=== PATIENT | female | born 1970 | race Hispanic/Latino ===

== ENCOUNTER → 2017-12-06 | Outpatient (CLI) | payer OTHER ==
[~2017-12-06] MED LIST: ADDERALL XR 2020 MG PO; CITALOPRAM HBR20 MG PO; LEVOTHYROXINE75 MCG PO; LEVOTHYROXINE88 MCG PO; OMEGA 3 1,0001 EACH PO; OMEPRAZOLE40 MG PO; OXYBUTYNIN PO
--- NOTE | 2017-12-06 14:59 | Diagnostic Imaging Report ---
EXAM: CT Chest WITHOUT contrast INDICATION: \[id number] \S\[id number] \S\ABN CHEST X-RAY COMPARISON: Chest CT dated 03/28/2014 TECHNIQUE: Chest was scanned utilizing a multidetector helical scanner from the lung apex through the level of the adrenal glands without administration of IV contrast. Absence of intravenous contrast decreases sensitivity for detection of lymphadenopathy and vascular pathology. Coronal and sagittal reformations were obtained. Routine protocol was performed. IV CONTRAST: None COMPLICATIONS: None RADIATION DOSE: Total DLP: 504.28 mGy*cm Estimated effective dose: (DLP x 0.014 x size factor) mSv CTDIvol has been reviewed. It is below the limits set by the Radiation Protocol Committee (RPC). FINDINGS: LINES/ TUBES: None. LUNGS AND AIRWAYS: The lungs are unremarkable. No focal consolidation. Superior right lower lobe 1.3 cm cyst/pneumatocele. Airways are normal. PLEURA: The pleural spaces are clear. HEART AND MEDIASTINUM: The visualized thyroid gland is normal. No mediastinal, hilar or axillary lymphadenopathy. The heart is normal in size.. There is no pericardial effusion. UPPER ABDOMEN: Multiple hepatic hypodensities are again seen. Left upper quadrant splenule. BONES: The visualized bony thorax is within normal limits. SOFT TISSUES: Unremarkable. IMPRESSION: Clear lungs. No focal consolidation. Multiple hepatic hypodensities are again seen, probably cysts. If clinically indicated, right upper quadrant ultrasound can be obtained to confirm. Signed by: Dr. Guillermo Castillo MD on 12/06/2017 2:56 PM
== END ==
LOC: CT 14:04
PROVIDERS: ATTEND Family Medicine
DX: R93.8 Abnormal findings on diagnostic imaging of other specified body structures (principal)
CPT/HCPCS: 71250

== ENCOUNTER 2018-10-23 17:34 | Observation (INO) | payer OTHER ==
[~2018-10-23] VITALS: Ht 160 cm; Wt 90.3 kg
--- OUTSIDE RECORDS SUMMARY | 2018-10-23 17:37 | XMS REPORT | Continuity of Care Document ---
Author Author [facility] Interface Address Unknown Phone Unavailable Problems Problem Status Onset Date Classification Date Reported Comments Source Influenza due to Influenza A virus 10/30/2017 Diagnosis 10/30/2017 [facility] Pain in throat 10/30/2017 Diagnosis 10/30/2017 [facility] Medications Medication Details Route Status Patient Instructions Ordering Provider Order Date Source benzonatate 200 MG Oral Capsule benzonatate 200 mg capsule Take 1 capsule 3 times a day by oral route as needed. Active [facility] Cyclobenzaprine hydrochloride 10 MG Oral Tablet cyclobenzaprine 10 mg tablet Active [facility] Amphetamine aspartate 5 MG / Amphetamine Sulfate 5 MG / Dextroamphetamine saccharate 5 MG / Dextroamphetamine Sulfate 5 MG Oral Tablet dextroamphetamine- amphetamine 20 mg tablet Active [facility] 24 HR Naproxen 375 MG Extended Release Oral Tablet naproxen sodium ER 375 mg tablet,extended release 24hr mphase Active [facility] Omeprazole 40 MG Delayed Release Oral Capsule omeprazole 40 mg capsule,delayed release Active [facility] 24 HR Oxybutynin chloride 15 MG Extended Release Oral Tablet oxybutynin chloride ER 15 mg tablet,extended release 24 hr Active [facility] Levothyroxine Sodium 0.088 MG Oral Tablet [Synthroid] Synthroid 88 mcg tablet Active [facility] Oseltamivir 75 MG Oral Capsule [Tamiflu] Tamiflu 75 mg capsule Take 1 capsule twice a day by oral route as directed for 5 days. Active [facility] terbinafine 250 MG Oral Tablet terbinafine HCl 250 mg tablet Active [facility] Zolpidem tartrate 5 MG Oral Tablet zolpidem 5 mg tablet Active [facility] Allergies, Adverse Reactions, Alerts Substance Category Reaction Severity Reaction type Status Date Reported Comments Source Immunizations Immunization Date Given Site Status Last Updated Comments Source Results Order Name Results Value Reference Range Date Interpretation Comments Source RESULT negative 10/30/2017 [facility] SWAB LOCATION Left and Right tonsillar pillars 10/30/2017 [facility] Influenza A positive 10/30/2017 [facility] Influenza B negative 10/30/2017 [facility] Vital Signs Vital Sign Value Date Comments Source Diastolic (mm Hg) 80 10/30/2017 [facility] Height 63 10/30/2017 [facility] Systolic (mm Hg) 110 10/30/2017 [facility] Weight 196 10/30/2017 [facility] Encounters Location Location Details Encounter Type Encounter Number Reason For Visit Attending Provider ADM Date DC Date Status [id number] [address] [facility] [place] [address], Ph. [id number] Yoli Gross 10/30/2017 [facility] Procedures Procedure Code Date Perfomer Comments Source Treatment of Bladder Lesion 76503 [facility] Shoulder Joint Surgery 75261 [facility] Hysterectomy [facility]
--- OUTSIDE RECORDS SUMMARY | 2018-10-23 17:37 | XMS REPORT ---
Author Author [facility] Address Unknown Phone Unavailable Care Team Providers Care Jewel Stripper Name Role Phone ANTONIO JATIN Unavailable Unavailable Problems This patient has no known problems. Allergies, Adverse Reactions, Alerts This patient has no known allergies or adverse reactions. Medications This patient has no known medications. Results Test Description Test Time Test Comments Text Results Atomic Results Result Comments CT CHEST WO [place] [address] Patient Name: SARAH LINDER MR #: [id number] : 1970 Age/Sex: 47/F Req #: [id number] Adm Physician: Ordered by: JATIN ALVAREZ DO Report #: [id number] Location: CT Room/Bed: Procedure: [id number] CT/CT CHEST WO Exam Date: 12/06/17 Exam Time: 1423 REPORT STATUS: Signed EXAM: CT Chest WITHOUT contrast INDICATION: COMPARISON: Chest CT dated 03/28/2014 TECHNIQUE: Chest was scanned utilizing a multidetector helical scanner from the lung apex through the level of the adrenal glands without administration of IV contrast. Absence of intravenous contrast decreases sensitivity for detection of lymphadenopathy and vascular pathology. Coronal and sagittal reformations were obtained. Routine protocol was performed. IV CONTRAST: None COMPLICATIONS: None RADIATION DOSE: Total DLP: 504.28 mGy*cm Estimated effective dose: (DLP x 0.014 x size factor) mSv CTDIvol has been reviewed. It is below the limits set by the Radiation Protocol Committee (RPC). FINDINGS: LINES/ TUBES: None. LUNGS AND AIRWAYS: The lungs are unremarkable. No focal consolidation. Superior right lower lobe 1.3 cm cyst/pneumatocele. Airways are normal. PLEURA: The pleural spaces are clear. HEART AND MEDIASTINUM: The visualized thyroid gland is normal. No mediastinal, hilar or axillary lymphadenopathy. The heart is normal in size.. There is no pericardial effusion. UPPER ABDOMEN: Multiple hepatic hypodensities are again seen. Left upper quadrant splenule. BONES: The visualized bony thorax is within normal limits. SOFT TISSUES: Unremarkable. IMPRESSION: Clear lungs. No focal consolidation. Multiple hepatic hypodensities are again seen, probably cysts. If clinically indicated, right upper quadrant ultrasound can be obtained to confirm. Signed by: Dr. Guillermo Valdovinos MD on 12/06/2017 2:56 PM Dictated By: GUILLERMO VALDOVINOS MD 1458 Transcribed By: ALENA on 12/06/17 145 COPY TO: JATIN ALVAREZ DO MRI SPINE LUMBAR WO [place] [address] Patient Name: SARAH LINDER MR #: [id number] : 1970 Age/Sex: 47/F Req #: [id number] Adm Physician: Ordered by: JATIN ALVAREZ DO Report #: [id number] Location: MRI Room/Bed: Procedure: [id number] MRI/MRI SPINE LUMBAR WO Exam Date: 07/03/17 Exam Time: 1500 REPORT STATUS: Signed History: Low back pain Comparison studies: None Technique: Sagittal, coronal and axial T2 , sagittal T1 and IR, axial spin density oblique. Intravenous contrast: None Findings: Number of lumbar vertebral bodies:5 Alignment: Normal lordosis.No scoliosis. Soft tissues: No T2 hyperintense inflammatory changes. Paraspinal muscles: No signal abnormalities. No atrophy. Lower thoracic cord:Normal in signal and morphology. The tip of the conus is at L1. Cauda equina: No masses. No arachnoiditis. Vertebrae: Normal in height and signal intensity. No compression fractures, infection or neoplasm. Degenerative changes: L1-L2: No abnormalities. L2-L3: No abnormalities. L3-L4: No abnormalities. L4-L5: Mild asymmetric left disc bulge, mild facet hypertrophy and ligamentum flavum thickening results in no significant canal stenosis or foraminal narrowing. L5-S1: No abnormalities. Additional findings: No IMPRESSION: No acute spinal abnormality. Minimal degenerative changes without canal stenosis or foraminal narrowing. Signed by: DR Sid Amezquita M.D. on 07/04/2017 10:42 AM Dictated By: SID PARIKH MD 1042 Transcribed By: ALENA on 07/04/17 1042 COPY TO: JATIN ALVAREZ DO
--- OUTSIDE RECORDS SUMMARY | 2018-10-23 17:37 | XMS REPORT | Encounter Summary ---
Author Organization Unknown Address [address] [place] [id number] Phone [phone] Care Team Providers Care Medical Research Assistant Name Role Phone Lamonte Ontiveros MD 3 [phone] Reason for Visit Medical Complaint Instructions 1. Influenza due to Influenza A virus Tamiflu 75 mg capsule benzonatate 200 mg capsule rapid flu (A+B) 2. Pain in throat sore throat: care instructions rapid strep group A, throat Discussion Note Pt is in NAD; Verbalizes understanding of all instructions with no questions at this time. Plan of Care Patient Instructions Take fluticasone as needed for congestion. [place] one spray in each nostril twice a day. Take a warm, steamy shower, blow your nose thereafter, and spray in each nostril. Tilt your head up for about 10 seconds and breath through your mouth. Do not sniff or snort the medication in or else the medication will go to your throat and not be absorbed appropriately. Take benzonatate for cough as directed. Take Tamiflu (oseltamivir) as directed for the flu. Hold off on naproxen for now and alternate with Ibuprofen and acetaminophen every 4hrs as needed for sore throat/pain/fever/headache. Proper hydration and rest. Return to work/school if free of fever for 24-hrs. Do not share any utensils/cups, no kissing, recommend hand washing after coughing/sneezing/blowing nose and cover face when you do so. Take medications as prescribed. Return to clinic or follow up with your PCP within 2-3 days if symptoms worsen as discussed. Reminders Provider Appointments None recorded. Lab Rapid Flu (A+B) 10/30/2017 [facility] Rapid Strep Group a, Throat 10/30/2017 [facility] Referral None recorded. Procedures None recorded. Surgeries None recorded. Imaging None recorded. Medications Name Start Date benzonatate 200 mg capsule Take 1 capsule 3 times a day by oral route as needed. cyclobenzaprine 10 mg tablet dextroamphetamine-amphetamine 20 mg tablet naproxen sodium ER 375 mg tablet,extended release 24hr mphase omeprazole 40 mg capsule,delayed release oxybutynin chloride ER 15 mg tablet,extended release 24 hr Synthroid 88 mcg tablet Tamiflu 75 mg capsule Take 1 capsule twice a day by oral route as directed for 5 days. terbinafine HCl 250 mg tablet zolpidem 5 mg tablet Medications Administered None recorded. Vitals Height Weight BMI Blood Pressure 5 ft 3 in 196 lbs 34.7 kg/m2 110/80 mm[Hg] Lab Results Date Name Specimen Result Interpretation Description Value Range Status Address Rapid Strep Group a, Throat Result negative [facility]: [address] [place] [address] Swab Location Left and Right tonsillar pillars [facility]: [address] [place] [address] Rapid Flu (A+B) Influenza a positive [facility]: [address] [place] [address] Influenza B negative [facility]: [address] [place] [address] Allergies Code Code System Name Reaction Severity Status Onset NKDA Problems None recorded. Procedures Date Name Performed by Treatment of Bladder Lesion Information not available Shoulder Joint Surgery Information not available Hysterectomy Information not available Vaccine List None recorded. Social History Smoking Status Never Smoker Past Encounters 10/30/2017 Influenza Due to Influenza a Virus; Pain in Throat Yoli Gross, [facility]: [address] [place] [address], Ph. History of Present Illness Uxlolwe-Tskmo-Jei Reported By: Patient HPI: Quality: symptoms worse during the day. Duration: 2 days. Context: no tick/insect bites, no recent travel, no new medications, ill contacts. Associated Symptoms: no fever/chills, no headache, no muscle aches, no rash, no lethargy, cough; sore throat, body aches and chills. Modifying Factors nothing gives relief Review of Systems:ROS as noted in the HPI Review of Systems Basic Reported By: Patient Physical Exam Adult Basic, Adult Female Complete Reported By: Patient Constitutional: General Appearance: healthy-appearing, well-nourished, well-developed. Level of Distress: NAD. Ambulation: ambulating normally Psychiatric: Mental Status: active and alert. Orientation: to time, to place, to person Emp-Otvl-Ltyhw-Throat: Ears: no lesions on external ear, no outer ear tenderness, EACs clear, TMs clear. Hearing: no hearing loss. Nose: no lesions on external nose, nares patent, no septal deviation, nasal passages clear, no sinus tenderness, nasal discharge--rhinorrhea, post nasal drip. Lips, Teeth, and Gums: no mouth or lip ulcers, no bleeding gums, normal dentition. Oropharynx: moist mucous membranes, no erythema, no exudates, tonsils not enlarged Neck: Lymph Nodes: no cervical LAD Lungs: Respiratory effort: no dyspnea, no tachypnea, no use of accessory muscles, no intercostal retractions. Auscultation: breath sounds normal Cardiovascular: Heart Auscultation: RRR, no murmurs Neurologic: Gait and Station: normal gait, normal station
--- OUTSIDE RECORDS SUMMARY | 2018-10-23 17:37 | XMS REPORT | Clinical Summary ---
Author Author [facility] Organization [facility] Address Unknown Phone Unavailable Care Team Providers Care Hospice Volunteer Coordinator Name Role Phone Angelia Royal RN PCP Unavailable Allergies Not on File Medications Not on file Active Problems Not on file Social History Date Tobacco Use Types Packs/Day Years Used Never Assessed Sex Assigned at Date Recorded Not on file Industry Job Start Date Occupation Not on file Not on file Not on file Travel End Travel History Travel Start No recent travel history available. Last Filed Vital Signs Not on file Plan of Treatment Health Maintenance Due Date Last Done Comments CERVICAL CANCER SCREENING 1990 INFLUENZA VACCINE 05/14/2018 Results Not on fileafter 10/22/2017 Insurance Payer Benefit Subscriber ID Type Phone Address Plan / Group AETNA AETNA xxxxxxxxxx HMO HMO,POS,EP O, MC/EC Advance Directives Patient has advance care planning documents on file. For more information, faisal lares contact: Enzo Jacome [address] [place] [address]
[2018-10-23] MEDS ORDERED: ASPIRIN 81 MG CHEW TAB PO ONE ×2 (18:00→22:15)
[2018-10-23 18:04] LABS: BASOPHILS % 0.4 % (0.0-1.0); EOSINOPHILS # (AUTO) 0.1 (0.0-0.4); EOSINOPHILS % 1.3 % (0.0-6.0); HEMATOCRIT 40.7 % (34.2-44.1); HEMOGLOBIN 13.7 g/dL (12.0-16.0); LYMPHOCYTES # (AUTO) 2.3 (1.0-3.2); LYMPHOCYTES % 27.4 % (18.0-39.1); MEAN CORPUSCULAR HEMOGLOBIN 32.4 pg (28-32); MEAN CORPUSCULAR HGB CONC 33.7 g/dL (31-35); MEAN CORPUSCULAR VOLUME 96.2 fL (81-99); MONOCYTES # (AUTO) 0.7 (0.2-0.8); MONOCYTES % 8.7 % (4.4-11.3); NEUTROPHILS # (AUTO) 5.1 (2.1-6.9); PLATELET COUNT 275 x10e3/uL (140-360); RED BLOOD COUNT 4.23 x10e6/uL (3.6-5.1); RED CELL DISTRIBUTION WIDTH 12.1 % (11.7-14.4)
[2018-10-23 18:10] LABS: INR 0.84; PROTHROMBIN TIME 12.3 seconds (11.9-14.5)
[2018-10-23 18:16] LABS: ALANINE AMINOTRANSFERASE 39 IU/L (0-55); ALBUMIN 4.2 g/dL (3.5-5.0); ALBUMIN/GLOBULIN RATIO 1.4 (0.8-2.0); ALKALINE PHOSPHATASE 71 IU/L (40-150); ANION GAP 14.6 mmol/L (8-16); BLOOD UREA NITROGEN 13 mg/dL (7-26); BUN/CREATININE RATIO 18 (6-25); CALCIUM 9.4 mg/dL (8.4-10.2); CARBON DIOXIDE 21 mmol/L (22-29); CHLORIDE 103 mmol/L (98-107); CREATINE KINASE 143 IU/L (29-168); CREATININE, SERUM 0.71 mg/dL (0.57-1.11); EST GLOMERULAR FILTRATION RATE > 60 ML/MIN (60-); GLUCOSE 97 mg/dL (74-118); POTASSIUM 3.6 mmol/L (3.5-5.1); SODIUM 135 mmol/L (136-145)
--- NOTE | 2018-10-23 18:37 | Diagnostic Imaging Report ---
EXAMINATION: CHEST SINGLE (PORTABLE) INDICATION: Chest pain. COMPARISON: 03/28/2014. FINDINGS: TUBES and LINES: None. LUNGS: Mild bibasilar subsegmental atelectasis. There is no evidence of pneumonia or pulmonary edema. PLEURA: No pleural effusion or pneumothorax. HEART AND MEDIASTINUM: The cardiomediastinal silhouette is unremarkable. BONES AND SOFT TISSUES: No acute osseous lesion. Soft tissues are unremarkable. UPPER ABDOMEN: No free air under the diaphragm. IMPRESSION: No acute thoracic abnormality. Signed by: Dr. Giancarlo Javier M.D. on 10/23/2018 6:34 PM
[2018-10-23 19:04] LABS: BILIRUBIN,URINE NEGATIVE (NEGATIVE); CLARITY,URINE CLEAR (CLEAR); COLOR,URINE COLORLESS (YELLOW); KETONES,URINE NEGATIVE (NEGATIVE); LEUKOCYTE ESTERASE ,URINE NEGATIVE (NEGATIVE); NITRITE,URINE NEGATIVE (NEGATIVE); PROTEIN,URINE DIPSTICK NEGATIVE (NEGATIVE); URINE UROBILINOGEN 0.2 mg/dL (0.2 - 1)
[2018-10-23 19:16] LABS: EPITHELIAL CELLS,URINE FEW /LPF
[2018-10-23] MEDS ORDERED: MORPHINE SULFATE 2 MG/ML SYR 1ML IV PRN (22:15)
[2018-10-23] MEDS ORDERED: SODIUM CHLORIDE FLUSH 10 ML SYR INJ PRN (22:15)
--- OUTSIDE RECORDS SUMMARY | 2018-10-23 22:20 | XMS REPORT | Clinical Summary ---
Author Author [facility] Organization [facility] Address Unknown Phone Unavailable Care Team Providers Care Policy Change Clerks Supervisor Name Role Phone Angelia Royal RN PCP [...] more information, faisal lares contact: Enzo Jacome [address] [place] [address]
[2018-10-23] MEDS ORDERED: PREMARIN0.45 MG PV (22:27)
[2018-10-23] MEDS ORDERED: MYRBETRIQ50 MG PO (22:27)
[2018-10-23] MEDS ORDERED: NALFON400 MG PO (22:27)
[2018-10-23] MEDS ORDERED: ULTRAM 50MG50 MG PO (22:27)
[2018-10-23] MEDS ORDERED: FLUTICASONE PRO16 GM INH (22:27)
[2018-10-23] MEDS ORDERED: CLONAZEPAM0.5 MG PO (22:27)
[2018-10-23] MEDS ORDERED: RANITIDINE HCL300 M1 PO (22:27)
[2018-10-23] MEDS: FAMOTIDINE 20 MG/2 ML VIAL IV SCH (22:30)
[2018-10-24] MEDS ORDERED: MORPHINE SULFATE INJ 4 MG/ML INJ 1ML ONE (02:52)
[2018-10-24 03:39] LABS: CREATINE KINASE 102 IU/L (29-168)
[2018-10-24 03:40] LABS: CHOL/HDL RATIO 3.4 (3.0-3.6)
[2018-10-24] MEDS ORDERED: ASPIRIN 81 MG ENTERIC COATED PO SCH (09:00)
[2018-10-24] MEDS: FAMOTIDINE 20 MG/2 ML VIAL IV SCH (09:33)
[2018-10-24 10:55] LABS: CREATINE KINASE 96 IU/L (29-168)
--- NOTE | 2018-10-24 11:50 | Diagnostic Imaging Report ---
EXAM: Right upper quadrant abdominal ultrasound INDICATION: Midline abdominal pain, query gallbladder pathology. COMPARISON: None. TECHNIQUE: Transverse and longitudinal images of the right upper quadrant abdomen were obtained FINDINGS: Liver: Size: Measures 15.7 cm in the right midclavicular line Appearance: Increased echogenicity, smooth contour Mass: No evidence of solid mass. Simple appearing anechoic cyst in the right hepatic lobe measuring up to 2.3 cm. Gallbladder: No distension, pericholecystic fluid, wall thickening, stone, or reported sonographic Pinto's sign. Gallbladder wall measures 0.2 cm. Bile Ducts: Intrahepatic Ducts: No dilatation Extrahepatic Ducts: Common bile duct measures 0.2 cm, no dilatation Pancreas: Visualized portions of the pancreatic head, neck and proximal body are normal. Kidney: The right kidney measures 11.4 cm without evidence of hydronephrosis or stone. Vessels: Aorta: Visualized portions are normal Inferior Vena Cava: Visualized portions are normal Main Portal Vein: 0.9 cm, normal size with hepatopetal flow. Free Fluid: No evidence of ascites. IMPRESSION: Borderline mild hepatomegaly with hepatic steatosis. Signed by: Dr. Juan Zabala MD on 10/24/2018 11:47 AM
--- NOTE | 2018-10-24 12:02 | Consultation ---
DATE OF CONSULTATION: October 24, 2018 CARDIOLOGY CONSULTATION REQUESTING PHYSICIAN: Martha Jimenez MD REASON FOR CONSULTATION: Chest pain. HISTORY OF PRESENT ILLNESS: This is a 48-year-old woman with a history of hypothyroidism and hyperlipidemia, who presents with complaints of chest pain. The patient indicates she has been having chest pain for the last 3 days. The pain has been constant and she describes it as sharp, worse with cough and deep inspiration. The pain was 9/10 in severity. Yesterday, she developed diaphoresis and shortness of breath. There was no radiation. She denies orthopnea or PND. REVIEW OF SYSTEMS: Negative, except as per HPI. PAST MEDICAL HISTORY 1. Hyperlipidemia. 2. Hypothyroidism. PAST SURGICAL HISTORY 1. Shoulder surgery. 2. Hysterectomy. 3. Bladder lift. ALLERGIES: NO KNOWN DRUG ALLERGIES. MEDICATIONS: Please see EMR. SOCIAL HISTORY: She has been smoking for 30 years. Drinks alcohol occasionally. No illicit drugs. FAMILY HISTORY: No history of heart disease. PHYSICAL EXAMINATION VITALS: Temperature 97.6 degrees, pulse 57, respiratory rate 11, blood pressure 100/62, oxygen saturation 100%. GENERAL: Awake, alert, in no acute distress. HEENT: Normocephalic and atraumatic. Pupils are equal. No scleral icterus. NECK: Supple. No thyromegaly or cervical lymphadenopathy. No carotid bruit. LUNGS: Clear to auscultation bilaterally. No wheezes or crackles. CARDIOVASCULAR: Normal rate, regular rhythm. No murmur. Normal S1, S2. ABDOMEN: Soft, nontender. NEURO: Nonfocal exam. LABS: WBC 8.29, hemoglobin 13.7, hematocrit 40.7, platelets 275. Sodium 135, potassium 3.6, chloride 103, CO2 21, BUN 13, creatinine 0.71. Troponin less than 0.001. BNP 12. Cholesterol 203, LDL 125, HDL 60, triglycerides 91. Chest x-ray: no acute thoracic abnormality. EKG: normal sinus rhythm. IMPRESSIONS 1. Chest pain. 2. Hyperlipidemia. 3. Hypothyroidism. RECOMMENDATIONS: Patient's chest pain description is atypical for cardiac etiology; however, given her risk factors, we will proceed with nuclear stress test to evaluate for ischemia. Echocardiogram has been ordered. Check D-dimer. If nuclear stress test is negative, consider CTA to evaluate for pulmonary embolism. Start atorvastatin given patient's hyperlipidemia. Further recommendations pending test results. Thank you for this consult. We will continue to follow. Job#: [id number] TA
--- NOTE | 2018-10-24 13:53 | NUR ---
BACK ON UNIT FROM X-RAY. V.S.S
[2018-10-24] MEDS ORDERED: MORPHINE SULFATE INJ 4 MG/ML INJ 1ML IV PRN (14:15)
--- NOTE | 2018-10-24 17:23 | Cardiology Report ---
DATE OF STUDY: October 24, 2018 NUCLEAR STRESS TEST INDICATIONS: Chest pain. Patient was stressed using a 1-minute intravenous infusion of Lexiscan. Rest and stress Myoview imaging was obtained. Resting heart rate 90 beats. Resting blood pressure 108/69. Following Lexiscan infusion, no EKG changes. No arrhythmias. Both nuclear imaging and resting stress is normal. Normal contractility of the left ventricle. CONCLUSION 1. Normal electrocardiogram and normal Lexiscan nuclear stress test without evidence of ischemia or infarction. 2. Left ventricular ejection fraction is 69%. Job#: [id number] [place]
[2018-10-24] MEDS ORDERED: ATORVASTATIN 40 MG TAB PO SCH (21:00)
[2018-10-24] MEDS ORDERED: ATORVASTATIN 20 MG TAB PO SCH (21:00)
--- OUTSIDE RECORDS SUMMARY | 2018-11-05 12:33 | XMS REPORT | Clinical Summary ---
Author Author [facility] Organization [facility] Address Unknown Phone Unavailable Care Team Providers Care Business Performance Manager Name Role Phone Angelia Royal RN PCP [...] INFLUENZA VACCINE 05/14/2018 Results Not on fileafter 11/04/2017 Insurance Payer Benefit Subscriber ID Type Phone Address Plan / Group AETNA AETNA xxxxxxxxxx HMO HMO,POS,EP O, MC/EC Advance Directives Patient has advance care planning documents on file. For more information, faisal lares contact: Enzo Jacome [address] [place] [address]
== END 2018-10-24 17:31 | disposition home or self-care (01) ==
LOC: ER 17:34 → ERHOLD 22:16 → UNDOADMOB 22:18
DX: R07.9 Chest pain, unspecified (principal); R05 Cough; E03.9 Hypothyroidism, unspecified; K21.9 Gastro-esophageal reflux disease without esophagitis; E78.5 Hyperlipidemia, unspecified; Z72.0 Tobacco use; Z82.49 Family history of ischemic heart disease and other diseases of the circulatory system; R07.2 Precordial pain
CPT/HCPCS: 36415 ×2; 71045; 76705; 78452; 80053; 80061; 81001; 82550 ×2; 82553 ×2; 83880; 84484 ×2; 85025; 85379; 85610; 85730; 93005; 93017; 93306; 96374; 99284; A9502; G0378 ×2; J2270

== ENCOUNTER → 2019-01-27 | Outpatient (CLI) | payer OTHER ==
[~2019-01-27] MED LIST changes: +CLONAZEPAM0.5 MG PO; +FLUTICASONE PRO16 GM INH; +MYRBETRIQ50 MG PO; +NALFON400 MG PO; +PREMARIN0.45 MG PV; +RANITIDINE HCL300 M1 PO; +ULTRAM 50MG50 MG PO
--- NOTE | 2019-01-27 17:03 | Diagnostic Imaging Report ---
Exam: Ultrasound neck soft tissue History: Lymphadenopathy Findings: Transverse and sagittal ultrasonographic imaging was obtained of the right and left neck with grayscale and color Doppler imaging. 1.0 x 0.2 x 0.8 cm hypoechoic lesion/lymph node in the right neck. 1.3 x 0.5 x 0.9 cm hypoechoic lesion/lymph node in the submandibular right neck. 0.8 x 0.3 x 0.7 cm lymph node with fatty hilum in the left neck. 1.5 x 0.6 x 0.9 cm lymph node with fatty hilum in the left neck submandibular region. No abnormal fluid collection is seen. Impression: Right and left neck lymph nodes as described above. If indicated CT scan may be of benefit. Signed by: Dr. Reynold Romero M.D. on 01/27/2019 4:59 PM
== END ==
LOC: US 15:49
PROVIDERS: ATTEND Family Medicine
DX: R59.0 Localized enlarged lymph nodes (principal)
CPT/HCPCS: 76536

== ENCOUNTER 2019-02-04 17:26 | Observation (INO) | payer OTHER ==
[~2019-02-04] VITALS: Ht 162.6 cm; Wt 89.4 kg
[~2019-02-04 17:26] MED LIST changes: -GABAPENTIN100 MG PO
--- OUTSIDE RECORDS SUMMARY | 2019-02-04 17:28 | XMS REPORT | Clinical Summary ---
Author Author [facility] Organization [facility] Address Unknown Phone Unavailable Care Team Providers Care Accelerator Operator Name Role Phone Angelia Royal RN PCP [...] Comments CERVICAL CANCER SCREENING 1990 INFLUENZA VACCINE 05/14/2019 Results Not on fileafter 02/03/2018 Insurance Payer Benefit Subscriber ID Type Phone Address Plan / Group AETNA AETNA xxxxxxxxxx HMO HMO,POS,EP O, MC/EC Advance Directives Patient has advance care planning documents on file. For more information, faisal lares contact: Enzo Jacome [address] [place] [address]
--- OUTSIDE RECORDS SUMMARY | 2019-02-04 17:29 | XMS REPORT | Continuity of Care Document ---
Author Author [facility] Interface Address Unknown Phone Unavailable Problems Problem Status Onset Date Classification Date Reported Comments Source Influenza due to Influenza A virus 10/30/2017 Diagnosis 10/30/2017 [facility] Pain in throat 10/30/2017 Diagnosis 10/30/2017 [facility] Chest pain Active Problem 11/05/2018 [facility] Medications Medication Details Route Status Patient Instructions Ordering Provider Order Date Source [place]-3 Fatty Acids/Fish Oil ([place] 3 1,000 Mg Softgel) 1 Each Capsule, Oral As Needed Active 10/23/2018 [facility] Omeprazole 40 Mg Capsule.dr, 40 Mg Oral Daily Active 10/23/2018 [facility] Oxybutynin , 5 Mg Oral Daily Active 10/23/2018 [facility] Levothyroxine Sodium 75 Mcg Tablet, 75 Mcg Oral Daily Active 08/01/2015 [facility] benzonatate 200 MG Oral Capsule benzonatate 200 [...] Tablet zolpidem 5 mg tablet Active [facility] Amphet Asp/Amphet/D-Amphet (Adderall Xr 20 Mg Capsule) 20 Mg Cap.er.24h Daily Active [facility] Citalopram Hydrobromide (Citalopram Hbr) 20 Mg Tablet Daily Active [facility] Clonazepam 0.5 Mg Tablet Daily Active [facility] Estrogens, Conjugated (Premarin) 0.45 Mg Tablet Use As Directed Active TWICE WEEKLY AT NIGHT [facility] Fenoprofen Calcium (Nalfon) 400 Mg Capsule Twice A Day Active [facility] Fluticasone Propionate 16 Gm [place].susp Twice A Day as needed for Allergy Active [facility] Levothyroxine Sodium 88 Mcg Tablet Daily Active [facility] Mirabegron (Myrbetriq) 50 Mg Tab.er.24h Daily Active [facility] Ranitidine Hcl 300 Mg Capsule Bedtime Active [facility] Tramadol Hcl (Ultram 50MG*) 50 Mg Tab Every 6 Hours as needed for Pain Active [facility] Allergies, Adverse Reactions, Alerts Substance Category Reaction Severity Reaction type Status Date Reported Comments Source No Known Drug Allergies Unknown Allergy to Substance Active 10/23/2018 [facility] Immunizations Immunization Date Given Site Status Last Updated Comments Source Results Order Name Results Value Reference Range Date Interpretation Comments Source Fibrin D-dimer DDU measurement in platelet poor plasma (mass/volume) 0.10 0.00 - 0.45 10/24/2018 [facility] Serum or plasma creatine kinase measurement (enzymatic activity/volume) 96 29 - 168 10/24/2018 [facility] Serum or plasma creatine kinase MB measurement (mass/volume) 0.70 0 - 5.0 10/24/2018 [facility] Troponin I measurement by highly sensitive enzyme immunoassay < 0.001 0 - 0.300 10/24/2018 [facility] Serum or plasma triglyceride measurement (mass/volume) 91 0 - 149 10/24/2018 [facility] Serum or plasma cholesterol measurement (mass/volume) 203 0 - 199 10/24/2018 [facility] Serum or plasma cholesterol in LDL measurement (mass/volume) 125 60 - 130 10/24/2018 [facility] Serum or plasma cholesterol in HDL measurement (mass/volume) 60 40 - 60 10/24/2018 [facility] Serum or plasma total cholesterol/cholesterol in HDL mass ratio 3.4 3.0 - 3.6 10/24/2018 [facility] Urine color determination COLORLESS YELLOW 10/23/2018 [facility] Urine clarity CLEAR CLEAR 10/23/2018 [facility] Specific gravity of Urine by Test strip 1.005 1.010 - 1.025 10/23/2018 [facility] Urine pH measurement by automated test strip 6 5 - 7 10/23/2018 [facility] Urine leukocyte esterase detection by dipstick NEGATIVE NEGATIVE 10/23/2018 [facility] Urine nitrite detection NEGATIVE NEGATIVE 10/23/2018 [facility] Urine protein measurement by test strip (mass/volume) NEGATIVE NEGATIVE 10/23/2018 [facility] Urine glucose detection NEGATIVE NEGATIVE 10/23/2018 [facility] Urine ketones detection by automated test strip NEGATIVE NEGATIVE 10/23/2018 [facility] Urine urobilinogen measurement by test strip (mass/volume) 0.2 0.2 - 1 10/23/2018 [facility] Urine total bilirubin measurement (mass/volume) NEGATIVE NEGATIVE 10/23/2018 [facility] Urine erythrocytes detection NEGATIVE NEGATIVE 10/23/2018 [facility] Automated urine sediment leukocyte count by microscopy (number/high power field) NONE 0 - 5 10/23/2018 [facility] Erythrocytes detection in urine sediment by light microscopy NONE 0 - 5 10/23/2018 [facility] Bacteria detection in urine sediment by light microscopy NONE NONE 10/23/2018 [facility] Epithelial cells detection in urine sediment by light microscopy FEW NONE 10/23/2018 [facility] Blood leukocytes automated count (number/volume) 8.29 4.8 - 10.8 10/23/2018 [facility] Blood erythrocytes automated count (number/volume) 4.23 3.6 - 5.1 10/23/2018 [facility] Blood hemoglobin measurement (moles/volume) 13.7 12.0 - 16.0 10/23/2018 [facility] Automated blood hematocrit (volume fraction) 40.7 34.2 - 44.1 10/23/2018 [facility] Automated erythrocyte mean corpuscular volume 96.2 81 - 99 10/23/2018 [facility] Automated erythrocyte mean corpuscular hemoglobin (mass per erythrocyte) 32.4 28 - 32 10/23/2018 [facility] Automated erythrocyte mean corpuscular hemoglobin concentration measurement (mass/volume) 33.7 31 - 35 10/23/2018 [facility] RDW BldCo-Rto 12.1 11.7 - 14.4 10/23/2018 [facility] Automated blood platelet count (count/volume) 275 140 - 360 10/23/2018 [facility] Automated blood segmented neutrophil count as percentage of total leukocytes 62.0 38.7 - 80.0 10/23/2018 [facility] Automated blood lymphocyte count as percentage ot total leukocytes 27.4 18.0 - 39.1 10/23/2018 [facility] Automated blood monocyte count as percentage of total leukocytes 8.7 4.4 - 11.3 10/23/2018 [facility] Automated blood eosinophil count as percentage of total leukocytes 1.3 0.0 - 6.0 10/23/2018 [facility] Automated blood basophil count as percentage of total leukocytes 0.4 0.0 - 1.0 10/23/2018 [facility] IM GRANULOCYTES % 0.2 0.0 - 1.0 10/23/2018 [facility] Automated blood neutrophil count 5.1 2.1 - 6.9 10/23/2018 [facility] Blood lymphocytes count (number/volume) 2.3 1.0 - 3.2 10/23/2018 [facility] Blood monocytes automated count (number/volume) 0.7 0.2 - 0.8 10/23/2018 [facility] Automated blood eosinophil count 0.1 0.0 - 0.4 10/23/2018 [facility] Automated blood basophil count (count/volume) 0.0 0.0 - 0.1 10/23/2018 [facility] Absolute Immature Granulocyte (auto 0.02 0 - 0.1 10/23/2018 [facility] Prothrombin time (PT) in platelet poor plasma by coagulation assay 12.3 11.9 - 14.5 10/23/2018 [facility] INR in Platelet poor plasma by Coagulation assay 0.84 10/23/2018 [facility] Activated partial thromboplastin time (aPTT) in platelet poor plasma bycoagulation assay 28.0 23.8 - 35.5 10/23/2018 [facility] Serum or plasma sodium measurement (moles/volume) 135 136 - 145 10/23/2018 [facility] Serum or plasma potassium measurement (moles/volume) 3.6 3.5 - 5.1 10/23/2018 [facility] Serum or plasma chloride measurement (moles/volume) 103 98 - 107 10/23/2018 [facility] Serum or plasma carbon dioxide, total measurement (moles/volume) 21 22 - 29 10/23/2018 [facility] Serum or plasma anion gap 14.6 8 - 16 10/23/2018 [facility] Serum or plasma urea nitrogen measurement (mass/volume) 13 7 - 26 10/23/2018 [facility] Serum or plasma creatinine measurement (mass/volume) 0.71 0.57 - 1.11 10/23/2018 [facility] Serum or plasma urea nitrogen/creatinine mass ratio 18 6 - 25 10/23/2018 [facility] Estimated glomerular filtration rate (GFR) determination > 60 60 10/23/2018 [facility] Glucose measurement 97 74 - 118 10/23/2018 [facility] Serum or plasma calcium measurement (mass/volume) 9.4 8.4 - 10.2 10/23/2018 [facility] Serum or plasma total bilirubin measurement (mass/volume) 0.3 0.2 - 1.2 10/23/2018 [facility] Aspartate Amino Transf (AST/SGOT) 23 5 - 34 10/23/2018 [facility] Serum or plasma alanine aminotransferase measurement (enzymatic activity/volume) 39 0 - 55 10/23/2018 [facility] Serum or plasma protein measurement (mass/volume) 7.3 6.5 - 8.1 10/23/2018 [facility] Serum or plasma albumin measurement (mass/volume) 4.2 3.5 - 5.0 10/23/2018 [facility] Plasma globulin measurement (mass/volume) 3.1 2.3 - 3.5 10/23/2018 [facility] Serum or plasma albumin/globulin mass ratio 1.4 0.8 - 2.0 10/23/2018 [facility] Serum or plasma alkaline phosphatase measurement (enzymatic activity/volume) 71 40 - 150 10/23/2018 [facility] BNP Bld-mCnc 12.0 0 - 100 10/23/2018 [facility] RESULT negative 10/30/2017 [facility] SWAB LOCATION Left [...] Provider ADM Date DC Date Status Source [place] - [facility] - [id number] Angela Ginny, HAND NAILER-C: [address] [place] [address], Ph. [id number] Yoli Gross 10/30/2017 [facility] Discharged Inpatient (obs) [id number] BREANA FLETCHER MD 10/23/2018 10/24/2018 [facility] Procedures Procedure Code Date Perfomer Comments Source US Gallbladder [id number] 10/24/2018 JUSITNE TILLMAN [facility] Treatment of Bladder Lesion [address] [facility] Shoulder Joint Surgery [id number] [facility] Hysterectomy [facility]
--- NOTE | 2019-02-04 17:48 | NUR ---
IV D/C'D FROM RADIOLOGY, WARM MOIST HEAT ON AND ACEWRAP PER MD IN TRIAGE. +CAP REFILL < 2 SECOND BILATERALLY AND BILATERAL RADIAL
--- NOTE | 2019-02-04 17:49 | NUR ---
PT STATES ARMS LOOK DIFFERENT. MD BACK TO TRIAGE AND RE EVAL AND NO FINDINGS. PT SOMEWHAT HYSTERONIC IN TRIAGE.
--- NOTE | 2019-02-04 19:08 | NUR ---
walking rounds with FRANCISCO J Lee. Patient in no distress at this time.
[2019-02-04] MEDS ORDERED: HYDROCODONE/APAP 10MG-325MG TAB PO ONE (20:15)
[2019-02-04 20:33] LABS: BASOPHILS # (AUTO) 0.1 (0.0-0.1); BASOPHILS % 0.5 % (0.0-1.0); EOSINOPHILS # (AUTO) 0.1 (0.0-0.4); HEMOGLOBIN 13.4 g/dL (12.0-16.0); LYMPHOCYTES # (AUTO) 3.4 (1.0-3.2); LYMPHOCYTES % 30.6 % (18.0-39.1); MEAN CORPUSCULAR HEMOGLOBIN 32.3 pg (28-32); MEAN CORPUSCULAR HGB CONC 33.5 g/dL (31-35); MEAN CORPUSCULAR VOLUME 96.4 fL (81-99); MONOCYTES # (AUTO) 0.8 (0.2-0.8); MONOCYTES % 7.2 % (4.4-11.3); NEUTROPHILS # (AUTO) 6.8 (2.1-6.9); NEUTROPHILS % 60.3 % (38.7-80.0); PLATELET COUNT 290 x10e3/uL (140-360); RED BLOOD COUNT 4.15 x10e6/uL (3.6-5.1); RED CELL DISTRIBUTION WIDTH 12.3 % (11.7-14.4)
[2019-02-04 20:49] LABS: INR 0.88; PARTIAL THROMBOPLASTIN TIME 30.8 seconds (23.8-35.5); PROTHROMBIN TIME 12.4 seconds (11.9-14.5)
[2019-02-04 20:56] LABS: ALANINE AMINOTRANSFERASE 26 IU/L (0-55); ALBUMIN 3.9 g/dL (3.5-5.0); ALBUMIN/GLOBULIN RATIO 1.1 (0.8-2.0); ALKALINE PHOSPHATASE 72 IU/L (40-150); ANION GAP 14.6 mmol/L (8-16); BLOOD UREA NITROGEN 9 mg/dL (7-26); BUN/CREATININE RATIO 13 (6-25); CALCIUM 9.4 mg/dL (8.4-10.2); CARBON DIOXIDE 21 mmol/L (22-29); CHLORIDE 104 mmol/L (98-107); CREATININE, SERUM 0.68 mg/dL (0.57-1.11); EST GLOMERULAR FILTRATION RATE > 60 ML/MIN (60-); GLUCOSE 115 mg/dL (74-118); POTASSIUM 3.6 mmol/L (3.5-5.1); SODIUM 136 mmol/L (136-145)
[2019-02-04] MEDS ORDERED: MORPHINE SULFATE 2 MG/ML SYR 1ML IV PRN (21:00)
--- OUTSIDE RECORDS SUMMARY | 2019-02-04 21:41 | XMS REPORT | Clinical Summary ---
Author Author [facility] Address Unknown Phone Unavailable Care Team Providers Care Innersole Maker Name Role Phone Angelia Royal RN PCP [...] more information, faisal lares contact: Enzo Jacome [address] [place] [address]
[2019-02-04] MEDS ORDERED: SODIUM CHLORIDE 0.9% 50ML 50 ML ONE (22:40)
[2019-02-04] MEDS ORDERED: IOPAMIDOL 370 MG/ML 200 ML INFUS..BTL INJ ONE (22:40)
[2019-02-04] MEDS: ONDANSETRON HCL INJ 2MG/ML 2ML 2 MG/ML VIAL IV PRN (23:07)
[2019-02-04] MEDS: MORPHINE SULFATE INJ 4 MG/ML INJ 1ML IV PRN (23:07)
[2019-02-04] MEDS ORDERED: GABAPENTIN100 MG PO (23:13)
[2019-02-04] MEDS ORDERED: CITALOPRAM HBR20 MG PO (23:14)
[2019-02-04] MEDS ORDERED: MYRBETRIQ50 MG PO (23:18)
[2019-02-05] VITALS (7 sets, daily range): BP systolic 100–134; BP diastolic 53–80
--- NOTE | 2019-02-05 | NUR ---
Got report from CLAIRE Lee nurse. Patient occupied her. She came via stretcher. Call light within reach.
[2019-02-05] MEDS ORDERED: PNEUMOCOCCAL VACCINE POLYVALENT 23 MCG/0.5 ML VIAL IM SCH (00:36)
[2019-02-05] MEDS: MORPHINE SULFATE INJ 4 MG/ML INJ 1ML IV PRN ×3 (04:44→17:05)
[2019-02-05] MEDS: ONDANSETRON HCL INJ 2MG/ML 2ML 2 MG/ML VIAL IV PRN ×3 (04:44→17:05)
--- NOTE | 2019-02-05 06:55 | NUR ---
Gave report to oncoming nurse. Call light within reach. Patient in bed.
[2019-02-05 09:11] LABS: BASOPHILS % 0.4 % (0.0-1.0); EOSINOPHILS # (AUTO) 0.1 (0.0-0.4); EOSINOPHILS % 1.5 % (0.0-6.0); HEMATOCRIT 37.9 % (34.2-44.1); HEMOGLOBIN 12.5 g/dL (12.0-16.0); LYMPHOCYTES # (AUTO) 2.3 (1.0-3.2); LYMPHOCYTES % 33.2 % (18.0-39.1); MEAN CORPUSCULAR HEMOGLOBIN 32.1 pg (28-32); MEAN CORPUSCULAR VOLUME 97.4 fL (81-99); MONOCYTES # (AUTO) 0.7 (0.2-0.8); MONOCYTES % 10.2 % (4.4-11.3); NEUTROPHILS # (AUTO) 3.7 (2.1-6.9); NEUTROPHILS % 54.4 % (38.7-80.0); PLATELET COUNT 291 x10e3/uL (140-360); RED BLOOD COUNT 3.89 x10e6/uL (3.6-5.1); RED CELL DISTRIBUTION WIDTH 12.3 % (11.7-14.4)
[2019-02-05 09:25] LABS: ALANINE AMINOTRANSFERASE 24 IU/L (0-55); ALBUMIN 3.8 g/dL (3.5-5.0); ALBUMIN/GLOBULIN RATIO 1.1 (0.8-2.0); ALKALINE PHOSPHATASE 69 IU/L (40-150); ANION GAP 10.7 mmol/L (8-16); BLOOD UREA NITROGEN 10 mg/dL (7-26); BUN/CREATININE RATIO 15 (6-25); CALCIUM 9.1 mg/dL (8.4-10.2); CARBON DIOXIDE 26 mmol/L (22-29); CHLORIDE 104 mmol/L (98-107); CREATININE, SERUM 0.68 mg/dL (0.57-1.11); EST GLOMERULAR FILTRATION RATE > 60 ML/MIN (60-); GLUCOSE 114 mg/dL (74-118); POTASSIUM 3.7 mmol/L (3.5-5.1); SODIUM 137 mmol/L (136-145)
--- NOTE | 2019-02-05 10:46 | NUR ---
SOCIAL WORK INITIAL ASSESSMENT Furniture Builder to bedside to discuss plan of care with patient/family. CM/SW role and care transitions discussed. Anticipated discharge plan discussed along with duration of care. CM/SW discussed patients right to make decisions in care. CM/SW work hours given. Patient lives: IN HOUSE WITH FAMILY Admit/Transfer: VIA ED POA/Emergency contact: BALAJI NAQVI [phone] Current/Previous Home Health: NONE PCP/Follow-up Care: [facility] Current/Previous DME: NONE Other Services: NONE Employment Status: HEALTHCARE CUSTOMER SERVICE Areas of Concerns: OCCASIONALLY SMOKES Referral Needs: NONE Education Needs: NONE IMM/MICHEL given and signed (if applicable): NA Goal for discharge: RETURN HOME INDEPENDENTLY CM/SW left business card at the bedside with contact information. Name and number was also written on the patients whiteboard. Patient verbalized understanding of discussion. CM will follow-up with ongoing discharge and transition of care needs.
--- NOTE | 2019-02-05 12:49 | NUR ---
patient leaving the floor alert and oriented, via wheelchair for CT.
--- NOTE | 2019-02-05 15:29 | Diagnostic Imaging Report ---
History: Lymphadenopathy Comparison studies: CT neck 02/04/2019. The study was repeated due to contrast extravasation Technique: Axial, coronal and sagittal images from the skull base to the thoracic inlet. Coronal and sagittal images reconstructed from the axial data. Intravenous contrast: 100 cc of Omnipaque 300. Dose modulation, iterative reconstruction, and/or weight based adjustment of the mA/kV was utilized to reduce the radiation dose to as low as reasonably achievable. Findings: Soft tissues: No abnormalities. Masses: None. Lymph nodes: No radiographically significant adenopathy. Vessels: Arteries and veins are patent. The left vertebral artery arises from the arch as a normal variant Glands (thyroid, parotid and submandibular): Normal in size and symmetric. No masses. Orbits: No abnormalities. Paranasal sinuses: Clear. Temporal bones: No abnormalities. Skull base and facial bones: Intact. Cervical spine: C3-C4: Moderate right foraminal narrowing secondary to uncinate process and facet hypertrophy C4-C5: Moderate right foraminal stenosis due to facet and uncovertebral arthrosis. C5-C6: Moderate right foraminal stenosis due to facet and uncovertebral arthrosis. C6-C7: Moderate right foraminal stenosis due to uncovertebral arthrosis IMPRESSION: 1. No sizable neck masses or lymphadenopathy. 2. Degenerative changes of the cervical spine as described above. Signed by: DR Sid Amezquita M.D. on 02/05/2019 3:25 PM
[2019-02-05] MEDS ORDERED: SODIUM CHLORIDE 0.9% 50ML 0 ML ONE (16:04)
[2019-02-05] MEDS ORDERED: IOPAMIDOL 370 MG/ML 200 ML INFUS..BTL INJ ONE (16:06)
--- NOTE | 2019-02-05 19:05 | NUR ---
rounded with night supervisor nurse, patient aware of change and in no distress. call sal within reach and bed in lowest position
[2019-02-06] VITALS: BP 116/60
[2019-02-06] MEDS: MORPHINE SULFATE INJ 4 MG/ML INJ 1ML IV PRN (00:47)
[2019-02-06] MEDS: ONDANSETRON HCL INJ 2MG/ML 2ML 2 MG/ML VIAL IV PRN (00:47)
[2019-02-06 04:00] VITALS: BP 92/52
[2019-02-06 04:03] VITALS: BP 92/52
[2019-02-06 07:51] VITALS: BP 106/57
[2019-02-06 12:09] VITALS: BP 114/59
--- NOTE | 2019-02-06 14:01 | NUR ---
patient discharged home, Dr Kateryna Jimenez had rounds, no prescriptions, left arm looks normal, patient denies any pain or discomfort. Patient pulled her IV out, pressure dressing applied, no ss of infiltration noted, at bed side giving ride. All personnel belongings with patient
== END 2019-02-06 14:00 | disposition home or self-care (01) ==
LOC: ER 17:26 → ERHOLD 21:38 → IMCU 02-05 00:20
DX: T80.1XXA Vascular complications following infusion, transfusion and therapeutic injection, initial encounter (principal); G47.33 Obstructive sleep apnea (adult) (pediatric); E03.9 Hypothyroidism, unspecified; M47.9 Spondylosis, unspecified; Z23 Encounter for immunization
CPT/HCPCS: 36415 ×2; 80053 ×2; 85025 ×2; 85610; 85730; 90732; 94660; 96374; 99284; G0009; G0378 ×3; J2270 ×3; J2405 ×3; Q9967 ×2; 70491

== ENCOUNTER → 2019-02-04 | Outpatient (CLI) | payer OTHER ==
[~2019-02-04] MED LIST changes: +GABAPENTIN100 MG PO
--- NOTE | 2019-02-04 23:05 | Diagnostic Imaging Report ---
History: Throat pain and trouble swallowing. Comparison studies: No direct comparison, compared with ultrasound soft tissues of the neck from 01/27/2019. Technique: Axial images were obtained from the skull base to the thoracic inlet. Coronal and sagittal images reconstructed from the axial data. Dose modulation, iterative reconstruction, and/or weight based adjustment of the mA/kV was utilized to reduce the radiation dose to as low as reasonably achievable. Intravenous contrast: Complication due to extravasation of large volume of intravenous contrast that occurred at the time of scan at 5:15 PM on 02/04/2019, this information was brought to my attention by silver designer Smith by phone at 7:30 PM on 02/04/2019. Patient condition was discussed with ER physician Dr. Choudhary by phone at 7:45 PM on 02/04/2019, was advised for close clinical observation, discussed regarding the signs and symptoms due to severe contrast extravasation and to consider surgical consultation if necessary. Findings: Evaluation of the neck is limited due to the absence of intravenous contrast. In spite of this limitation, Soft tissues: Suboptimal evaluation due to dental amalgam artifacts. Minimal soft tissue prominence within the vallecula likely represents lingual tonsillar hyperplasia. No discrete mass or large fluid collection, given lack of intravenous contrast. Airway is patent. Lymph nodes: 9 mm right level 1B lymph node and 1 cm left level 1B lymph node are likely reactive Vessels: Cannot evaluate. Glands (thyroid, parotid and submandibular): Normal in size and symmetric. No masses. Orbits: No abnormalities. Paranasal sinuses: Clear. Temporal bones: No abnormalities. Skull base and facial bones: Intact. Cervical spine: C4-C5: Moderate right foraminal stenosis due to facet and uncovertebral arthrosis. C5-C6: Moderate right foraminal stenosis due to facet and uncovertebral arthrosis. C6-C7: Moderate right foraminal stenosis due to uncovertebral arthrosis. IMPRESSION: 1. No discrete mass or large fluid collection (given lack of contrast). 2. Mildly enlarged, nonnecrotic/noncalcified left level 1B lymph node is likely reactive. Signed by: Dr. Kasie Felix M.D. on 02/04/2019 11:02 PM
== END ==
LOC: CT 15:57
PROVIDERS: ATTEND Family Medicine
DX: R59.1 Generalized enlarged lymph nodes (principal)
CPT/HCPCS: 70490